=== PATIENT | female | born 1995 | race African-American/Black ===

== ENCOUNTER → 2017-07-24 | Outpatient (CLI) | payer OTHER | END | disposition home or self-care (01) | LOC: C.RDSM 12:18 | PROVIDERS: ATTEND Physical Medicine & Rehabilitation Sports Medicine | DX: M25.521 Pain in right elbow (principal) ==

== ENCOUNTER → 2017-08-02 | Outpatient (CLI) | payer OTHER ==
--- NOTE | 2017-08-02 14:35 | DIAGNOSTIC IMAGING REPORT ---
RIGHT ELBOW INJECTION UNDER FLUOROSCOPIC GUIDANCE CLINICAL HISTORY: Elbow fracture status post radial head resection. Injection for MR arthrogram. PROCEDURE: The risks, benefits, and alternatives to the procedure were discussed with the patient. Written informed consent was obtained. The patient was seated next the fluoroscopy table and the right elbow was position and laterally. A right elbow injection was performed under fluoroscopic guidance. The area was prepped and draped in the usual sterile fashion. The skin and soft tissues anesthetized with local 1% lidocaine. The right elbow joint was accessed utilizing a 25-gauge needle, and approximately 5 cc of a mixture of gadolinium contrast, Optiray 300, and saline was injected into the joint space under fluoroscopic guidance. There was normal distention of the capsule. The procedure was well tolerated and without immediate complication. The patient was then transferred to MRI for MR arthrography. FLUOROSCOPY TIME: 18 seconds. IMPRESSION: Unremarkable injection of the right elbow under fluoroscopic guidance. Electronically signed by: Archie Villar M.D. 08/02/2017 2:34 PM Dictated Date/Time: 08/02/2017 2:32 PM
--- NOTE | 2017-08-03 07:52 | DIAGNOSTIC IMAGING REPORT ---
MRI ARTHROGRAM OF THE RIGHT ELBOW CLINICAL HISTORY: Status post trauma with subsequent radial head excision. Possible ulnar collateral ligament injury. COMPARISON STUDY: Right elbow radiographs July 24, 2017. TECHNIQUE: Following a fluoroscopically guided right elbow arthrogram and utilizing a 1.5 Patricia magnet, multiplanar, multiecho imaging of the right elbow was performed without intravenous contrast. FINDINGS: There are findings consistent with resection of the right radial head. Expected susceptibility artifact is noted. There is contrast within the elbow joint. There is no significant marrow edema. There is suspected mild chondrosis of the capitellum. Alignment of the right elbow is anatomic. There is a complete tear of the ulnar collateral ligament. The radial collateral ligament is visualized. There is mild intermediate T2 signal at the insertion of the radius shown on coronal image 11 of 21. The common extensor tendon is intact. There is mild increased T2 signal within the proximal common flexor tendon. No osteochondral lesion is identified. IMPRESSION: 1. Status post resection of the right radial head. 2. Complete tear of the ulnar collateral ligament. 3. Radial collateral ligament likely intact. Mild intermediate T2 signal at the insertion on the radius could reflect granulation tissue or partial tear. 4. Mild signal within the common flexor tendon suggestive of tendinopathy. Electronically signed by: Ross Bernal M.D. 08/03/2017 7:51 AM Dictated Date/Time: 08/02/2017 3:11 PM
== END | disposition home or self-care (01) ==
LOC: C.MRIBC 13:04
PROVIDERS: ATTEND Physical Medicine & Rehabilitation Sports Medicine
DX: S52.121A Displaced fracture of head of right radius, initial encounter for closed fracture (principal); M25.521 Pain in right elbow; X58.XXXA Exposure to other specified factors, initial encounter

== ENCOUNTER → 2017-08-24 | Outpatient (CLI) | payer OTHER | END | disposition home or self-care (01) | LOC: C.RDSM 10:21 | PROVIDERS: ATTEND Physical Medicine & Rehabilitation Sports Medicine | DX: S52.121D Displaced fracture of head of right radius, subsequent encounter for closed fracture with routine healing (principal); X58.XXXD Exposure to other specified factors, subsequent encounter ==

== ENCOUNTER → 2017-11-01 | Outpatient (CLI) | payer OTHER ==
[2017-11-01 12:13] LABS: URINE APPEARANCE CLEAR (CLEAR); URINE BILIRUBIN NEG (NEG); URINE COLOR YELLOW; URINE NITRITE NEG (NEG); URINE SPECIFIC GRAVITY 1.022 (1.000-1.030); UROBILINOGEN NEG (NEG)
[2017-11-01 12:14] LABS: MANUAL MICROSCOPIC REQUIRED? NO; REVIEW REQ? NO
== END | disposition home or self-care (01) ==
LOC: C.LAB1850 10:28
PROVIDERS: ATTEND Internal Medicine Infectious Disease
DX: Z00.00 Encounter for general adult medical examination without abnormal findings (principal)